=== PATIENT | female | born 1970 | race Caucasian/White ===

== ENCOUNTER 2019-12-15 12:30 | Emergency (ER) | payer MEDICAID ==
[~2019-12-15] VITALS: Ht 157.5 cm; Wt 81.6 kg
[2019-12-15] MEDS ORDERED: METOCLOPRAMIDE HCL 10 MG/2 ML VIAL IV ONE (12:45)
[2019-12-15] MEDS ORDERED: IV NORMAL SALINE 1000 ML BAG IV ONE (12:45)
[2019-12-15] MEDS ORDERED: diphenhydrAMINE 50 MG/1 ML VIAL IM ONE (12:45)
[2019-12-15] MEDS ORDERED: diphenhydrAMINE 50 MG/1 ML VIAL ONE (12:53)
[2019-12-15] MEDS ORDERED: METOCLOPRAMIDE HCL 10 MG/2 ML VIAL ONE ×2 (12:53→12:54)
[2019-12-15] MEDS ORDERED: LIDOCAINE 2%-EPI 1:100,000 20 ML VIAL ONE (12:58)
[2019-12-15] MEDS ORDERED: LIDOCAINE 2%-EPI 1:100,000 20 ML VIAL TP ONE (13:00)
--- NOTE | 2019-12-15 13:11 | NUR ---
PT IS IN ROOM #1B. DR MARAVILLA EVALUATED THE PT.
[2019-12-15] MEDS ORDERED: MECLIZINE HCL 25 MG TABLET PO ONE (13:15)
[2019-12-15] MEDS ORDERED: MECLIZINE HCL 25 MG TABLET ONE (13:16)
[2019-12-15 13:17] LABS: BASOPHILS % (AUTO) 0.4 % (0.0-2.0); EOSINOPHILS # (AUTO) 0.1 K/uL (0.0-0.7); EOSINOPHILS % (AUTO) 1.2 % (0.0-7.0); HEMATOCRIT 42.1 % (31.2-41.9); HEMOGLOBIN 13.9 g/dL (10.9-14.3); LYMPHOCYTES # (AUTO) 2.8 K/uL (20.0-40.0); LYMPHOCYTES % (AUTO) 42.9 % (20.5-51.5); MEAN CORPUSCULAR HEMOGLOBIN 29.6 uug (24.7-32.8); MEAN CORPUSCULAR HGB CONC 33 g/dL (32.3-35.6); MEAN CORPUSCULAR VOLUME 89.5 fL (75.5-95.3); MONOCYTES # (AUTO) 0.6 K/uL (2.0-10.0); MONOCYTES % (AUTO) 9.9 % (0.0-11.0); NEUTROPHILS % (AUTO) 45.6 % (38.5-71.5); PLATELET COUNT (AUTO) 248 K/uL (179-408); WHITE BLOOD COUNT (AUTO) 6.5 K/uL (3.8-11.8)
[2019-12-15 13:19] LABS: CREATININE 0.9 mg/dL (0.6-1.3); POTASSIUM 3.8 mmol/L (3.5-5.1)
[2019-12-15 13:25] LABS: BILIRUBIN,DIRECT 0.1 mg/dL (0.0-0.2); BILIRUBIN,TOTAL 0.6 mg/dL (0.2-1.0); TOTAL PROTEIN, SERUM 8.1 g/dL (6.4-8.2)
--- NOTE | 2019-12-15 13:35 | NUR ---
Evelyn ahmadi in [facility] - 12/15/19 at 1336 by [facility] REPORT WAS GIVEN TO JOHN M/Lokesh PT WAS TRANSFERED TO ROOM #321.
--- NOTE | 2019-12-15 16:10 | NUR ---
PT WAS D/C'd TO HOME. D/C INSTRUCTIONS GIVEN TO THE PT BY DR MARAVILAL. GAIT IS STABLE. NO S/S OF DISTRESS AT THE TIME OF DISCHARGE FROM [facility].
[2019-12-15 16:11] VITALS: BP 132/78
== END 2019-12-15 16:12 | disposition home or self-care (01) ==
LOC: ER 12:44
DX: R42 Dizziness and giddiness (principal); R51 Headache; R11.2 Nausea with vomiting, unspecified; K02.9 Dental caries, unspecified
CPT/HCPCS: 36415; 70450; 80048; 80076; 84484; 85025; 93005; 96361; 96374; 96375; 99285; J1200; J2765 ×2; 70030-TC; A4663; J7030; J8597

== ENCOUNTER 2020-11-01 06:31 | Emergency (ER) | payer BC, MEDICAID ==
[~2020-11-01] VITALS: Ht 157.5 cm; Wt 72.6 kg
--- NOTE | 2020-11-01 06:40 | NUR ---
Pt c/o toothache past 3 days in lower left side of mouth. Took norco at home which made her nauseous. Pt. accompanied by her daughter.
[2020-11-01] MEDS ORDERED: IBUPROFEN 600 MG TABLET PO ONE (06:45)
--- NOTE | 2020-11-01 06:45 | NUR ---
Dr. Broderick at bedside for mse.
[2020-11-01] MEDS ORDERED: IBUPROFEN 600 MG TABLET ONE (06:57)
[2020-11-01] MEDS ORDERED: BUPIVACAINE 0.25% 30 ML VIAL INJ PRN (07:00)
[2020-11-01] MEDS ORDERED: ONDANSETRON ODT 4 MG TAB.RAPDIS SL ONE (07:00)
[2020-11-01] MEDS ORDERED: BUPIVACAINE 0.25% 30 ML VIAL ONE (07:04)
[2020-11-01] MEDS ORDERED: ONDANSETRON ODT 4 MG TAB.RAPDIS ONE (07:04)
[2020-11-01] MEDS ORDERED: BUPIVACAINE/EPI PF 0.25% 10 ML VIAL IJ ONE (07:30)
[2020-11-01] MEDS ORDERED: MISCELLANEOUS MED INJ ONE (07:30)
[2020-11-01] MEDS ORDERED: BUPIVACAINE 0.25% 30 ML VIAL TP ONE (07:30)
--- NOTE | 2020-11-01 07:48 | NUR ---
Patient discharged to home in stable condition. Written and verbal after care instructions given. Patient verbalizes understanding of instructions. Stressed follow up or return to ER for worsening s/s.
[2020-11-01 07:49] VITALS: BP 130/84
== END 2020-11-01 07:51 | disposition home or self-care (01) ==
LOC: ER 06:37
DX: K04.7 Periapical abscess without sinus (principal)
CPT/HCPCS: 64400; 99283; J3490 ×2; A4663; Q0162